=== PATIENT | male | born 1940 | race Caucasian/White ===

== ENCOUNTER 2020-09-25 16:10 | Inpatient (IN) ==
[2020-09-25 17:04] LABS: Basophils % 0.2 % (0.0-0.8); Hemoglobin 15.1 GM/DL (14.0-18.0); Immature Granulocytes % 0.6 %; Immature Granulocytes Absolute 0.09 #; Lymphocytes # 0.9 10*3/uL (1.4-4.0); Lymphocytes % 5.9 % (21.2-54.2); Mean Corpuscular HGB Conc 34.3 GM/DL (32-36); Mean Corpuscular Volume 88.5 FL (87-102); Mean Platelet Volume 9.2 FL (9.6-12.0); Neutrophils % 84.3 % (38.7-73.9); Platelet Count 214 T/CUMM (130-400); Red Blood Count 4.97 MC/CUMM (3.8-5.5); Red Cell Distribution Width 14.6 % (9.3-17.3); White Blood Count 14.5 T/CUMM (4-12)
[2020-09-25 17:13] LABS: INR 1.7; PT Patient Result 17.9 SECS (9.8-11.9)
[2020-09-25 17:27] LABS: Albumin 3.5 G/DL (3.4-5.0); Bilirubin,Total 0.8 MG/DL (0.2-1.0); Calcium 8.7 MG/DL (8.5-10.1); Osmolality,Calculated 267.5 MOS/KG (273-304); Total Protein 7.3 G/DL (6.4-8.3)
[2020-09-25 17:35] LABS: Ferritin 126.5 ng/ml (26-388)
[2020-09-25] MEDS ORDERED: cefTRIAXone 1,000 MG in SODIUM CHLORIDE 0.9% 100 ML IV STA (17:42)
[2020-09-25] MEDS ORDERED: SODIUM CHLORIDE 0.9% 1,000 ML IV STA (17:43)
[2020-09-25] MEDS ORDERED: DEXTROSE 50% 25 GM/50 ML VIAL IV PRN (17:54)
[2020-09-25] MEDS ORDERED: GLUCAGON 1 MG VIAL IM PRN (17:54)
[2020-09-25] MEDS ORDERED: cefTRIAXone 1,000 MG VIAL ONE (18:25)
[2020-09-25] MEDS: cefTRIAXone 2,000 MG in SYRINGE 1 EACH IV SCH (18:31)
[2020-09-25] MEDS: FAMOTIDINE 20 MG TABLET PO SCH (20:42)
[2020-09-25] MEDS: ENOXAPARIN 40 MG/0.4 ML SYRINGE SUBCUT SCH (20:43)
[2020-09-25] MEDS: SODIUM CHLORIDE 0.9% 1,000 ML IV SCH (20:44)
[2020-09-25] MEDS ORDERED: guaiFENesin/CODEINE 5 ML LIQUID PO PRN (21:31)
[2020-09-25] MEDS ORDERED: BENZONATATE 100 MG CAPSULE PO PRN (21:32)
[2020-09-25] MEDS: ACETAMINOPHEN 325 MG TABLET PO PRN (22:01)
[2020-09-26 04:00] LABS: Basophils % 0.2 % (0.0-0.8); Hematocrit 42.1 VOL% (42.0-52.0); Hemoglobin 13.6 GM/DL (14.0-18.0); Immature Granulocytes % 0.6 %; Immature Granulocytes Absolute 0.06 #; Lymphocytes # 1.5 10*3/uL (1.4-4.0); Lymphocytes % 15.3 % (21.2-54.2); Mean Corpuscular HGB Conc 32.3 GM/DL (32-36); Mean Corpuscular Volume 91.1 FL (87-102); Mean Platelet Volume 9.5 FL (9.6-12.0); Monocytes % 7.2 % (1.7-12.7); Neutrophils % 76.7 % (38.7-73.9); Platelet Count 186 T/CUMM (130-400); Red Blood Count 4.62 MC/CUMM (3.8-5.5); Red Cell Distribution Width 14.8 % (9.3-17.3); White Blood Count 10.1 T/CUMM (4-12)
[2020-09-26 04:36] LABS: Calcium 8.2 MG/DL (8.5-10.1); Osmolality,Calculated 266.4 MOS/KG (273-304); Thyroid Stimulating Hormone 0.62 uIU/ml (0.358-3.74)
[2020-09-26] MEDS: AZITHROMYCIN 250 MG TABLET PO SCH (08:20)
[2020-09-26] MEDS: FAMOTIDINE 20 MG TABLET PO SCH ×2 (08:21→21:17)
[2020-09-26] MEDS: ZINC SULFATE 220 MG CAPSULE PO SCH (08:21)
[2020-09-26] MEDS: SODIUM CHLORIDE 0.9% 1,000 ML IV SCH (08:57)
[2020-09-26] MEDS ORDERED: REMDESIVIR 200 MG in SODIUM CHLORIDE 0.9% 210 ML IV ONE (09:00)
[2020-09-26] MEDS ORDERED: DEXAMETHASONE INJ 10 MG in SODIUM CHLORIDE 0.9% 50 ML IV SCH (09:00)
[2020-09-26] MEDS: cefTRIAXone 2,000 MG in SYRINGE 1 EACH IV SCH (17:55)
[2020-09-26] MEDS: ENOXAPARIN 40 MG/0.4 ML SYRINGE SUBCUT SCH (21:17)
[2020-09-27 06:13] LABS: Hematocrit 40.4 VOL% (42.0-52.0); Hemoglobin 13.2 GM/DL (14.0-18.0); Immature Granulocytes % 0.7 %; Immature Granulocytes Absolute 0.04 #; Lymphocytes # 0.9 10*3/uL (1.4-4.0); Mean Corpuscular HGB Conc 32.7 GM/DL (32-36); Mean Corpuscular Volume 90.8 FL (87-102); Mean Platelet Volume 9.8 FL (9.6-12.0); Monocytes % 8.1 % (1.7-12.7); Neutrophils % 76.2 % (38.7-73.9); Platelet Count 181 T/CUMM (130-400); Red Blood Count 4.45 MC/CUMM (3.8-5.5); Red Cell Distribution Width 14.6 % (9.3-17.3); White Blood Count 5.9 T/CUMM (4-12)
[2020-09-27 06:35] LABS: Calcium 7.8 MG/DL (8.5-10.1)
[2020-09-27] MEDS: FAMOTIDINE 20 MG TABLET PO SCH ×2 (08:08→20:50)
[2020-09-27] MEDS: ZINC SULFATE 220 MG CAPSULE PO SCH (08:08)
[2020-09-27] MEDS: REMDESIVIR 100 MG in SODIUM CHLORIDE 0.9% 100 ML IV SCH (08:08)
[2020-09-27] MEDS: AZITHROMYCIN 250 MG TABLET PO SCH (08:08)
[2020-09-27] MEDS: DEXAMETHASONE INJ 10 MG in SODIUM CHLORIDE 0.9% 50 ML IV SCH (09:58)
[2020-09-27] MEDS: SODIUM CHLORIDE 0.9% 1,000 ML IV SCH ×2 (16:10)
[2020-09-27] MEDS: cefTRIAXone 2,000 MG in SYRINGE 1 EACH IV SCH (17:56)
[2020-09-27] MEDS: ENOXAPARIN 40 MG/0.4 ML SYRINGE SUBCUT SCH (20:49)
[2020-09-27] MEDS: ACETAMINOPHEN 325 MG TABLET PO PRN (20:50)
[2020-09-28 07:02] LABS: Alanine Aminotransferase 23 U/L (16-61); Albumin 2.4 G/DL (3.4-5.0); Alkaline Phosphatase 38 U/L (45-117); Aspartate Amino Transferase 29 U/L (0-37); Bilirubin,Total < 0.39 MG/DL (0.2-1.0); Blood Urea Nitrogen 22 MG/DL (7-18); Calcium 7.6 MG/DL (8.5-10.1); Estimated Glom Filtration Rate 91 ML/MIN; Glucose 145 MG/DL (74-106); Osmolality,Calculated 286.3 MOS/KG (273-304); Total Protein 6.2 G/DL (6.4-8.3)
[2020-09-28] MEDS: ZINC SULFATE 220 MG CAPSULE PO SCH (08:36)
[2020-09-28] MEDS: AZITHROMYCIN 250 MG TABLET PO SCH (08:37)
[2020-09-28] MEDS: FAMOTIDINE 20 MG TABLET PO SCH (08:37)
[2020-09-28] MEDS: SODIUM CHLORIDE 0.9% 1,000 ML IV SCH (10:19)
[2020-09-28] MEDS: DEXAMETHASONE INJ 10 MG in SODIUM CHLORIDE 0.9% 50 ML IV SCH (10:21)
[2020-09-28 11:06] VITALS: BP 127/87
[2020-09-28] MEDS: REMDESIVIR 100 MG in SODIUM CHLORIDE 0.9% 100 ML IV SCH (11:09)
[2020-09-28 14:12] LABS: INR 1.1; PT Patient Result 11.6 SECS (9.8-11.9)
== END 2020-09-28 03:25 | disposition home health service (06) | DRG 177 ==
LOC: N.ED 16:10 → N.EDINP 17:54 → N.2E 20:18
PROVIDERS: ADMIT Internal Medicine; ATTEND Internal Medicine